=== PATIENT | female | born 1965 ===

== ENCOUNTER → 2024-08-06 07:10 | Outpatient (CLI) | payer OTHER, SELFPAY ==
--- NOTE | 2024-08-06 07:39 | DI.MRI.S_ITS ---
PROCEDURE: MR SHOULDER RT WO CON INDICATIONS: IMPINGEMENT OF RIGHT SHOULDER TECHNIQUE: Noncontrast oblique coronal T2 fast spin echo with fat saturation, oblique sagittal T1 spin echo and T2 fast spin echo with fat saturation, axial T1 spin echo and T2 fast spin echo with fat saturation through the shoulder. COMPARISON: [facility] [place], [place], XR SHOULDER 2+ VIEWS RIGHT, 05/27/2024, 11:37. FINDINGS: Image quality: Excellent. Rotator cuff: In the supraspinatus, there is low grade, articular sided tear at the mid and posterior footprint (08:13). The infraspinatus is unremarkable. The teres minor is unremarkable. The subscapularis is unremarkable. No muscle edema or fatty atrophy. Bones and bursae: Mild degenerative changes of the acromioclavicular joint. Type 2 acromion. No os acromiale. Mild subacromial/subdeltoid bursitis. Multifocal mild subchondral cystic changes at the greater tuberosity, reactive. No acute fracture. No focal chondral defect of the glenohumeral articulation. Capsule and soft tissues: Anterior superior labral tear. The posterior labrum is extremely diminutive, likely torn as well. No paralabral cyst. Mild tenosynovitis of the extra-articular biceps tendon. The intra-articular biceps tendon is unremarkable. No significant glenohumeral effusion. No intra-articular body. IMPRESSION: 1. Low-grade tear at the mid and posterior supraspinatus. 2. Mild degenerative changes of the acromioclavicular joint. 3. Labral tear. 4. Mild tenosynovitis of the extra-articular biceps tendon. Dictated by: Malissa Watkins M.D. on 08/06/2024 at 14:03 Approved by: Malissa Watkins M.D. on 08/06/2024 at 14:17
== END ==
LOC: MRI 07:14
PROVIDERS: Referring Provider Orthopaedic Surgery; Visit Provider Orthopaedic Surgery
DX: M75.111 Incomplete rotator cuff tear or rupture of right shoulder, not specified as traumatic (principal); M75.41 Impingement syndrome of right shoulder; S43.491A Other sprain of right shoulder joint, initial encounter
CPT/HCPCS: 73221